=== PATIENT | female | born 1975 | race Caucasian/White ===

== ENCOUNTER 2017-03-18 20:53 | Emergency (ER) | payer OTHER ==
[2017-03-18] MEDS ORDERED: NO MEDICATIONS (21:06)
== END 2017-03-18 21:50 | disposition home or self-care (01) ==
LOC: SED 20:53
DX: S39.012A Strain of muscle, fascia and tendon of lower back, initial encounter (principal); F17.200 Nicotine dependence, unspecified, uncomplicated; Z98.51 Tubal ligation status; V49.40XA Driver injured in collision with unspecified motor vehicles in traffic accident, initial encounter; Y92.410 Unspecified street and highway as the place of occurrence of the external cause
CPT/HCPCS: 99283